=== PATIENT | female | born 1950 | race Caucasian/White ===

== ENCOUNTER 2021-06-06 22:02 | Observation (INO) ==
[2021-06-06 22:42] LABS: Basophils % 0.1 %; Eosinophils % 0.1 %; Hematocrit 35.2 % (35.3-44.9); Hemoglobin 11.3 g/dL (11.5-15.4); Immature Granulocytes % 0.3 % (0-4); Lymphocytes # 1.1 K/mcL (0.6-4.6); Lymphocytes % 15.1 %; Mean Corpuscular HGB Conc 32.1 g/dL (31.6-35.5); Mean Corpuscular Hemoglobin 30.4 pg (28.0-33.3); Mean Corpuscular Volume 94.6 fL (83.0-100.0); Mean Platelet Volume 8.7 fL (9.4-12.4); Monocytes % 13.1 %; Neutrophils # 5.2 K/mcL (1.6-8.9); Platelet Count 254 K/mcL (140-400); Red Blood Count 3.72 M/mcL (3.82-4.97); Red Cell Distribution Width 17.1 % (11.5-14.5); Segmented Neutrophils % 71.3 %; White Blood Count 7.3 K/mcL (4.3-11.1)
[2021-06-06 23:04] LABS: BUN/Creatinine Ratio 27 (6-26); Blood Urea Nitrogen 18 mg/dL (8-23); Calcium 8.1 mg/dL (8.6-10.3); Carbon Dioxide 25 mEq/L (23-29); Chloride 97 mEq/L (98-107); Glucose 93 mg/dL (70-105); Osmolality,Calculated 278 (280-300); Potassium 3.9 mEq/L (3.5-5.1); Sodium 133 mEq/L (136-145); Troponin I < 0.03 ng/mL (< 0.04); eGFR For African Americans > 60 (> 60); eGFR For Non-African Americans > 60 (> 60)
[2021-06-06 23:18] LABS: Influenza A PCR Negative (Negative); Influenza B PCR Negative (Negative); Resp. Syncytial Virus PCR Negative (Negative)
[2021-06-06 23:26] LABS: SARS-CoV-2 by PCR (In House) Positive (Negative)
[2021-06-07] MEDS ORDERED: Acetaminophen 325 MG TABLET PO PRN (00:13)
[2021-06-07] MEDS ORDERED: BAMLANIVIMAB IVPB ONE (00:13)
[2021-06-07] MEDS ORDERED: methylPREDNISolone 125 MG/2 ML VIAL IVP PRN (00:13)
[2021-06-07] MEDS ORDERED: ETESEVIMAB IVPB ONE (00:13)
[2021-06-07] MEDS ORDERED: EPINEPHrine 1 MG/ML VIAL IM PRN (00:13)
[2021-06-07] MEDS ORDERED: Ondansetron 4 MG/2 ML VIAL IVP PRN ×2 (00:13→00:49)
[2021-06-07] MEDS ORDERED: SODIUM CHLORIDE 0.9% IVPB ONE (00:13)
[2021-06-07] MEDS ORDERED: Naloxone 0.4 MG/ML INJ IVP PRN (00:49)
[2021-06-07] MEDS ORDERED: Calcium Gluconate 1gm/50mL 1 GM/50 ML BAG IVPB ONE (00:52)
[2021-06-07] MEDS ORDERED: Ipratropium/Albuterol Neb 3 ML IH PRN (00:52)
[2021-06-07] MEDS ORDERED: 0.9 % Sodium Chloride 500 ML IVC PRN (00:55)
[2021-06-07 06:05] LABS: Bacteria,Urine Few per hpf (None-Few); Bilirubin,Urine Negative (Negative); Blood,Urine Negative (Negative); Clarity,Urine Clear (Clear); Color,Urine Yellow (Yellow); Glucose,Urine (UA) Normal (Normal); Ketones,Urine 40 mg/dL (Negative); Leukocyte Esterase,Urine Large (Negative); Mucus,Urine Few per lpf (None-Few); Nitrite,Urine Negative (Negative); PH,Urine 6.5 pH Units (5.0-8.0); Protein,Urine 70 mg/dL (Neg-Trace); Specific Gravity,Urine > 1.030 (1.010-1.025); Squamous Epithelial Cell,Urine Few per hpf (None-Few); Urobilinogen,Urine >=8.0 mg/dL (Normal); WBC,Urine 50-100 per hpf (0-3)
[2021-06-07 07:23] LABS: Basophils % 0.1 %; Eosinophils % 0.1 %; Immature Granulocytes % 0.5 % (0-4); Lymphocytes % 13.3 %; Mean Corpuscular HGB Conc 31.4 g/dL (31.6-35.5); Mean Corpuscular Volume 95.4 fL (83.0-100.0); Mean Platelet Volume 9.4 fL (9.4-12.4); Monocytes # 0.8 K/mcL (0.0-1.3); Monocytes % 11.3 %; Neutrophils # 5.6 K/mcL (1.6-8.9); Platelet Count 283 K/mcL (140-400); Red Blood Count 3.67 M/mcL (3.82-4.97); Red Cell Distribution Width 17.1 % (11.5-14.5); Segmented Neutrophils % 74.7 %; White Blood Count 7.5 K/mcL (4.3-11.1)
[2021-06-07 07:28] LABS: INR 1.2; Prothrombin Time 13.6 Seconds (9.4-12.1)
[2021-06-07 07:42] LABS: BUN/Creatinine Ratio 30 (6-26); Blood Urea Nitrogen 17 mg/dL (8-23); Calcium 8.6 mg/dL (8.6-10.3); Carbon Dioxide 27 mEq/L (23-29); Chloride 99 mEq/L (98-107); Glucose 85 mg/dL (70-105); Magnesium 2.5 mg/dL (1.6-2.6); Osmolality,Calculated 283 (280-300); Potassium 3.2 mEq/L (3.5-5.1); Sodium 136 mEq/L (136-145); eGFR For African Americans > 60 (> 60); eGFR For Non-African Americans > 60 (> 60)
[2021-06-07] MEDS: *HR* Enoxaparin 30 MG/0.3 ML SYRINGE SQ SCH (07:42)
[2021-06-07] MEDS: 0.9 % Sodium Chloride 1,000 ML IVC SCH ×2 (09:28→17:36)
[2021-06-07] MEDS: Acetaminophen 325 MG TABLET PO PRN (17:36)
[2021-06-08 02:04] LABS: Basophils % 0.1 %; Eosinophils % 0.2 %; Hematocrit 32.7 % (35.3-44.9); Hemoglobin 10.2 g/dL (11.5-15.4); Immature Granulocytes % 0.5 % (0-4); Lymphocytes # 0.9 K/mcL (0.6-4.6); Mean Corpuscular HGB Conc 31.2 g/dL (31.6-35.5); Mean Corpuscular Volume 99.4 fL (83.0-100.0); Mean Platelet Volume 9.3 fL (9.4-12.4); Monocytes # 1.1 K/mcL (0.0-1.3); Monocytes % 11.6 %; Neutrophils # 7.1 K/mcL (1.6-8.9); Platelet Count 298 K/mcL (140-400); Red Blood Count 3.29 M/mcL (3.82-4.97); Red Cell Distribution Width 17.2 % (11.5-14.5); Segmented Neutrophils % 77.6 %; White Blood Count 9.2 K/mcL (4.3-11.1)
[2021-06-08 02:43] LABS: BUN/Creatinine Ratio 26 (6-26); Blood Urea Nitrogen 14 mg/dL (8-23); Calcium 7.3 mg/dL (8.6-10.3); Carbon Dioxide 15 mEq/L (23-29); Chloride 109 mEq/L (98-107); Glucose 72 mg/dL (70-105); Magnesium 2.3 mg/dL (1.6-2.6); Osmolality,Calculated 281 (280-300); Phosphorous 1.7 mg/dL (2.7-4.5); Potassium 4.8 mEq/L (3.5-5.1); Sodium 136 mEq/L (136-145); eGFR For African Americans > 60 (> 60); eGFR For Non-African Americans > 60 (> 60)
[2021-06-08] MEDS ORDERED: Ipratropium/Albuterol Neb 3 ML IH SCH (12:00)
[2021-06-08] MEDS: *HR* Enoxaparin 30 MG/0.3 ML SYRINGE SQ SCH (12:02)
[2021-06-08] MEDS: *HR* LORazepam 2 MG/ML VIAL IVP PRN (12:03)
[2021-06-08] MEDS: Ipratropium 1 PUFF INHALER IH SCH ×2 (16:16→20:17)
[2021-06-09] MEDS: Ipratropium 1 PUFF INHALER IH SCH ×4 (04:03→20:47)
[2021-06-09 06:34] LABS: Basophils % 0.3 %; Eosinophils % 0.1 %; Hematocrit 35.5 % (35.3-44.9); Hemoglobin 10.6 g/dL (11.5-15.4); Immature Granulocytes % 1.5 % (0-4); Lymphocytes # 0.6 K/mcL (0.6-4.6); Lymphocytes % 6.7 %; Mean Corpuscular HGB Conc 29.9 g/dL (31.6-35.5); Mean Corpuscular Hemoglobin 29.9 pg (28.0-33.3); Mean Platelet Volume 8.9 fL (9.4-12.4); Monocytes # 1.1 K/mcL (0.0-1.3); Monocytes % 11.5 %; Neutrophils # 7.6 K/mcL (1.6-8.9); Platelet Count 414 K/mcL (140-400); Red Blood Count 3.55 M/mcL (3.82-4.97); Red Cell Distribution Width 17.3 % (11.5-14.5); Segmented Neutrophils % 79.9 %; White Blood Count 9.5 K/mcL (4.3-11.1)
[2021-06-09 06:44] LABS: BUN/Creatinine Ratio 18 (6-26); Blood Urea Nitrogen 10 mg/dL (8-23); Carbon Dioxide 19 mEq/L (23-29); Chloride 106 mEq/L (98-107); Glucose 91 mg/dL (70-105); Magnesium 2.2 mg/dL (1.6-2.6); Osmolality,Calculated 285 (280-300); Potassium 4.1 mEq/L (3.5-5.1); Sodium 138 mEq/L (136-145); eGFR For African Americans > 60 (> 60); eGFR For Non-African Americans > 60 (> 60)
[2021-06-09] MEDS: *HR* Enoxaparin 30 MG/0.3 ML SYRINGE SQ SCH (09:01)
[2021-06-09] MEDS: Acetaminophen 325 MG TABLET PO PRN ×2 (09:01→18:17)
[2021-06-09] MEDS: Ketorolac 30 MG/ML VIAL IVP PRN (22:43)
[2021-06-10] MEDS ORDERED: Ketorolac 30 MG/ML VIAL IVP SCH
[2021-06-10] MEDS: Ipratropium 1 PUFF INHALER IH SCH ×4 (03:57→21:05)
[2021-06-10 06:55] LABS: Basophils % 0.2 %; Eosinophils % 0.1 %; Hematocrit 30.6 % (35.3-44.9); Hemoglobin 9.5 g/dL (11.5-15.4); Immature Granulocytes % 1.8 % (0-4); Lymphocytes # 0.7 K/mcL (0.6-4.6); Lymphocytes % 8.2 %; Mean Corpuscular Hemoglobin 29.9 pg (28.0-33.3); Mean Corpuscular Volume 96.2 fL (83.0-100.0); Mean Platelet Volume 8.7 fL (9.4-12.4); Monocytes # 1.3 K/mcL (0.0-1.3); Monocytes % 14.7 %; Neutrophils # 6.4 K/mcL (1.6-8.9); Platelet Count 487 K/mcL (140-400); Red Blood Count 3.18 M/mcL (3.82-4.97); Red Cell Distribution Width 17.2 % (11.5-14.5); White Blood Count 8.6 K/mcL (4.3-11.1)
[2021-06-10 07:24] LABS: BUN/Creatinine Ratio 23 (6-26); Blood Urea Nitrogen 11 mg/dL (8-23); Calcium 7.8 mg/dL (8.6-10.3); Carbon Dioxide 21 mEq/L (23-29); Chloride 106 mEq/L (98-107); Glucose 116 mg/dL (70-105); Magnesium 2.3 mg/dL (1.6-2.6); Osmolality,Calculated 286 (280-300); Phosphorous 1.6 mg/dL (2.7-4.5); Potassium 3.4 mEq/L (3.5-5.1); Sodium 138 mEq/L (136-145); eGFR For African Americans > 60 (> 60); eGFR For Non-African Americans > 60 (> 60)
[2021-06-10] MEDS: *HR* Enoxaparin 30 MG/0.3 ML SYRINGE SQ SCH (09:06)
[2021-06-10] MEDS: *HR* LORazepam 2 MG/ML VIAL IVP PRN (15:54)
[2021-06-10] MEDS: Ketorolac 30 MG/ML VIAL IVP PRN (22:01)
[2021-06-11] MEDS: Ipratropium 1 PUFF INHALER IH SCH ×4 (04:26→20:55)
[2021-06-11 05:18] LABS: Basophils % 0.4 %; Eosinophils % 0.2 %; Hematocrit 30.8 % (35.3-44.9); Hemoglobin 9.8 g/dL (11.5-15.4); Immature Granulocytes % 2.5 % (0-4); Lymphocytes # 0.9 K/mcL (0.6-4.6); Lymphocytes % 8.8 %; Mean Corpuscular HGB Conc 31.8 g/dL (31.6-35.5); Mean Corpuscular Volume 97.5 fL (83.0-100.0); Mean Platelet Volume 8.8 fL (9.4-12.4); Monocytes % 18.5 %; Neutrophils # 7.4 K/mcL (1.6-8.9); Platelet Count 602 K/mcL (140-400); Red Blood Count 3.16 M/mcL (3.82-4.97); Red Cell Distribution Width 17.4 % (11.5-14.5); Segmented Neutrophils % 69.6 %; White Blood Count 10.6 K/mcL (4.3-11.1)
[2021-06-11 05:30] LABS: BUN/Creatinine Ratio 18 (6-26); Blood Urea Nitrogen 10 mg/dL (8-23); Calcium 7.7 mg/dL (8.6-10.3); Carbon Dioxide 21 mEq/L (23-29); Chloride 108 mEq/L (98-107); Glucose 108 mg/dL (70-105); Magnesium 2.2 mg/dL (1.6-2.6); Osmolality,Calculated 284 (280-300); Phosphorous 1.8 mg/dL (2.7-4.5); Potassium 3.8 mEq/L (3.5-5.1); Sodium 137 mEq/L (136-145); eGFR For African Americans > 60 (> 60); eGFR For Non-African Americans > 60 (> 60)
[2021-06-11 05:39] LABS: Anisocytosis 1+ (Not Present); Large Platelets Present (Not Present); Platelet Estimate Normal (Normal); Polychromasia 1+ (Not Present)
[2021-06-11] MEDS: *HR* Enoxaparin 30 MG/0.3 ML SYRINGE SQ SCH (07:43)
[2021-06-11] MEDS: Acetaminophen 325 MG TABLET PO PRN (17:06)
[2021-06-12] MEDS: Ipratropium 1 PUFF INHALER IH SCH ×4 (04:28→21:39)
[2021-06-12 07:22] LABS: Basophils % 0.3 %; Eosinophils % 0.3 %; Hemoglobin 9.6 g/dL (11.5-15.4); Immature Granulocytes % 3.1 % (0-4); Lymphocytes % 10.6 %; Mean Corpuscular Hemoglobin 30.4 pg (28.0-33.3); Mean Corpuscular Volume 98.1 fL (83.0-100.0); Mean Platelet Volume 8.6 fL (9.4-12.4); Monocytes # 1.3 K/mcL (0.0-1.3); Monocytes % 14.2 %; Neutrophils # 6.5 K/mcL (1.6-8.9); Platelet Count 644 K/mcL (140-400); Red Blood Count 3.16 M/mcL (3.82-4.97); Red Cell Distribution Width 17.4 % (11.5-14.5); Segmented Neutrophils % 71.5 %; White Blood Count 9.2 K/mcL (4.3-11.1)
[2021-06-12 07:50] LABS: BUN/Creatinine Ratio 20 (6-26); Blood Urea Nitrogen 10 mg/dL (8-23); Calcium 7.9 mg/dL (8.6-10.3); Carbon Dioxide 24 mEq/L (23-29); Chloride 107 mEq/L (98-107); Glucose 101 mg/dL (70-105); Magnesium 2.2 mg/dL (1.6-2.6); Osmolality,Calculated 285 (280-300); Phosphorous 2.2 mg/dL (2.7-4.5); Potassium 3.3 mEq/L (3.5-5.1); Sodium 138 mEq/L (136-145); eGFR For African Americans > 60 (> 60); eGFR For Non-African Americans > 60 (> 60)
[2021-06-12] MEDS: *HR* Enoxaparin 30 MG/0.3 ML SYRINGE SQ SCH (08:50)
[2021-06-12] MEDS: Ketorolac 30 MG/ML VIAL IVP PRN (14:00)
[2021-06-13 01:15] LABS: Basophils # 0.1 K/mcL (0.0-0.2); Basophils % 0.5 %; Eosinophils % 0.3 %; Hematocrit 28.1 % (35.3-44.9); Hemoglobin 9.1 g/dL (11.5-15.4); Immature Granulocytes % 4.3 % (0-4); Lymphocytes # 1.2 K/mcL (0.6-4.6); Lymphocytes % 13.1 %; Mean Corpuscular HGB Conc 32.4 g/dL (31.6-35.5); Mean Corpuscular Hemoglobin 31.7 pg (28.0-33.3); Mean Corpuscular Volume 97.9 fL (83.0-100.0); Mean Platelet Volume 8.7 fL (9.4-12.4); Monocytes # 1.6 K/mcL (0.0-1.3); Monocytes % 17.2 %; Platelet Count 675 K/mcL (140-400); Red Blood Count 2.87 M/mcL (3.82-4.97); Red Cell Distribution Width 17.3 % (11.5-14.5); Segmented Neutrophils % 64.6 %; White Blood Count 9.4 K/mcL (4.3-11.1)
[2021-06-13 01:31] LABS: BUN/Creatinine Ratio 40 (6-26); Blood Urea Nitrogen 20 mg/dL (8-23); Calcium 9.3 mg/dL (8.6-10.3); Carbon Dioxide 27 mEq/L (23-29); Chloride 103 mEq/L (98-107); Glucose 105 mg/dL (70-105); Osmolality,Calculated 285 (280-300); Phosphorous 3.6 mg/dL (2.7-4.5); Potassium 3.5 mEq/L (3.5-5.1); Sodium 136 mEq/L (136-145); eGFR For African Americans > 60 (> 60); eGFR For Non-African Americans > 60 (> 60)
[2021-06-13] MEDS: Ipratropium 1 PUFF INHALER IH SCH ×4 (03:45→19:32)
[2021-06-13] MEDS: Acetaminophen 325 MG TABLET PO PRN ×2 (04:36→19:47)
[2021-06-13] MEDS: *HR* Enoxaparin 30 MG/0.3 ML SYRINGE SQ SCH (09:28)
[2021-06-14] MEDS: Ipratropium 1 PUFF INHALER IH SCH ×4 (03:49→20:08)
[2021-06-14] MEDS: *HR* Enoxaparin 30 MG/0.3 ML SYRINGE SQ SCH (08:34)
[2021-06-14] MEDS: Acetaminophen 325 MG TABLET PO PRN (20:34)
[2021-06-14] MEDS: Gabapentin 300 MG CAPSULE PO SCH (20:34)
[2021-06-14] MEDS: Megestrol Acetate 400 MG/10 ML UDC PO SCH (20:34)
[2021-06-15] MEDS: Budesonide/Formoterol 160/4.5 1 PUFF INH IH SCH ×2 (03:28→11:56)
[2021-06-15] MEDS: Ipratropium 1 PUFF INHALER IH SCH ×2 (03:59→09:25)
[2021-06-15] MEDS ORDERED: Cholecalciferol (D-3) 1,000 UNIT (25MCG) TABLET PO SCH (09:00)
[2021-06-15] MEDS ORDERED: Aspirin Enteric Coated 81 MG Tablet PO SCH (09:00)
[2021-06-15] MEDS: *HR* Enoxaparin 30 MG/0.3 ML SYRINGE SQ SCH (09:18)
[2021-06-15] MEDS: Megestrol Acetate 400 MG/10 ML UDC PO SCH (09:18)
[2021-06-15] MEDS: Gabapentin 300 MG CAPSULE PO SCH (09:18)
[2021-06-15] MEDS ORDERED: Tiotropium 10 INH DOSE IH SCH (10:00)
[2021-06-15 11:30] VITALS: BP 128/73; PULSE 91; TEMP 98.7; O2SAT 97
== END 2021-06-15 13:11 | disposition home health service (06) ==
LOC: EMEROOARM 22:02 → 3BNU 22:02 → SUATTDRO 06-07 00:25 → 3BNU 06-07 01:20
PROVIDERS: ADMIT Student in an Organized Health Care Education/Training Program; ATTEND Internal Medicine